=== PATIENT | male | born 2005 | race Asian ===

== ENCOUNTER 2024-09-14 19:00 | Emergency (ER) | payer MEDICAID, SELFPAY ==
[2024-09-14 19:01] VITALS: BMI 27.0
[2024-09-14 20:22] VITALS: BP 131/81; PULSE 83; RESP 20; TEMP 37.1; O2SAT 97
[2024-09-14] MEDS: DEXAMETHASONE SOD PHOS INJ 10 MG/ML VIAL PO (21:03)
--- NOTE | 2024-09-14 21:18 | EDNOTE_ITS ---
ED Asthma RME/HPI General Chief Complaint: Shortness of Breath/Dyspnea Stated Complaint: SOB Time Seen by Provider: 09/14/24 20:44 Arrival date/time: 09/14/24 19:00 19M with history of asthma presents to ED with 1 day of cough and some SOB. Limitations: no limitations Related Data Previous Rx's ?Medication ?Instructions ?Recorded albuterol sulfate 90 mcg/actuation 2 puff inhalation Q 6H PRN 09/14/24 aerosol inhaler (Ventolin HFA) shortness of breath or wheezing #8.5 grams Allergies Allergy/AdvReac Type Severity Reaction Status Date / Time No Known Allergies Allergy Verified 09/14/24 19:00 Review of Systems Review of Systems Systems Reviewed: All systems reviewed, normal except as documented Constitutional Constitutional: Reports system reviewed and no additional complaints, except as documented, Denies fever(s) and Denies headache(s) ENT Ears, Nose, Mouth, and Throat: Denies disequilibrium and Denies headache(s) Cardiovascular Cardiovascular: Reports system reviewed and no additional complaints, except as documented, Denies chest pain and Reports dyspnea Respiratory Respiratory: Reports system reviewed and no additional complaints, except as documented, Reports as per HPI, Reports cough and Reports dyspnea Gastrointestinal Gastrointestinal: Reports system reviewed and no additional complaints, except as documented, Denies abdominal pain, Denies nausea and Denies vomiting Neurologic Neurologic: Reports system reviewed and no additional complaints, except as documented, Denies confusion, Denies disequilibrium and Denies headache(s) Psychiatric Psychiatric: Denies confusion Past Medical History Social History SMOKING STATUS: Never smoker ED Exam General Limitations: Present no limitations General appearance: Present alert and in no apparent distress Head Head exam: Present atraumatic Eye Eye exam: Present normal appearance, PERRL and EOMI ENT ENT exam: Present normal exam, normal oropharynx and mucous membranes moist Neck Neck exam: Present normal inspection, full ROM and trachea midline Chest Chest inspection: Present normal inspection and symmetric chest wall rise Respiratory Respiratory exam: Present prolonged expiratory phase (mild) Cardiovascular Cardiovascular exam: Present regular rate, normal rhythm and normal heart sounds Abdominal Exam Abdominal exam: Present soft and normal bowel sounds Extremities Exam Extremities exam: Present normal inspection and full ROM Back Exam Back exam: Present normal inspection and full ROM Neurological Exam Neurological exam: Present alert, oriented X3 and CN II-XII intact Psychiatric Psychiatric exam: Present normal affect and normal mood Skin Skin exam: Present warm, dry, intact and normal color Course Quality Measures none Orders Category Date Time Status Bedside Influenza A&B Antigen Test NOW Care 09/14/24 19:40 Active Albuterol/Ipratr Rt Laureen [Duoneb Rt Laureen] Med 09/14/24 21:16 Discontinued 3 ml INH X1 ONE Dexamethasone Inj [Decadron Inj] Med 09/14/24 20:44 Discontinued 10 mg PO X1 ONE Vital Signs Vital signs: Vital Signs Temperature 98.7 F 09/14/24 20:22 Pulse Rate 83 09/14/24 20:22 Respiratory Rate 20 09/14/24 20:22 Blood Pressure 131/81 H 09/14/24 20:22 Pulse Oximetry (%) 97 09/14/24 20:22 Oxygen Delivery Method Room Air 09/14/24 20:22 Asthma MDM Narrative MDM Narrative:: 19M with history of asthma presents to ED with 1 day of cough and some SOB. Physical exam reveals clear ENT and lungs. Mildly prolonged expiration. Patient is afebrile, calm, and alert. Swabs neg. Likely viral URI causing mild asthma exacerbation. Patient data External records reviewed:: None Clinical information provided by:: patient Social determinants that could affect healthcare access:: none Patient has the following chronic illnesses:: none How is presenting disease/condition affected by chronic disease/condition?: no chronic disease Evaluation data The following diagnostics were reviewed and interpreted by me:: lab results Lab and/or radiology exams considered but not ordered:: ordered Interpretation Summary: above Medications / Prescriptions Medications or Prescriptions considered but not ordered:: ordered Medication administrations:: Medication Administration History Discontinued Medications Albuterol/Ipratropium (Albuterol/Ipratropium (Duoneb) Rt Laureen 3 Ml Nebu) 3 ml INH X1 ONE Stop: 09/14/24 21:17 Dexamethasone Sodium Phosphate (Dexamethasone Sod Phos Inj 10 Mg/Ml Vial) 10 mg PO X1 ONE Stop: 09/14/24 20:45 Last Admin: 09/14/24 21:03 Dose: 10 mg Documented By: Consultations Consultation(s) initiated? (list below): No Diagnosis Differential diagnosis asthma: Acute exacerbation, Status asthmaticus, Acute ast hmatic bronchitis, Pneumonia, COPD exacerbation, Pulmonary edema systolic, Pulmonary edema dystolic, ARDS, Pneumothorax, Foreign body in trachea and other (URI) Most likely diagnosis given after review of the tests above:: URI and asthma exacerbation Admission Indicated Admission indicated?: not indicated Admission Request Was there a request for admission?: No Disposition Plan Disposition Plan: Discharge Discharge Attestation Discharge Attestation: The patient and all family members were given an opportunity to ask questions and understood the discharge instructions. Discharge instructions specifically effects, indications for sooner follow up or return to the emergency department, and the expected course of current diagnosis. Patient condition: Stable Discharge Plan Plan Patient Disposition: HOME (Self Care) Disposition Comment: Stable Prescriptions/Referrals Prescriptions/Med Rec: New albuterol sulfate [Ventolin HFA] 90 mcg/actuation HFA aerosol inhaler 2 puff inhalation Q6H PRN (Reason: shortness of breath or wheezing) Qty: 8.5 3RF Problem List Clinical Impression: URI (upper respiratory infection), Asthma with exacerbation Patient/Caregiver Discharge Instructions Education Materials: ED URI, Viral, No Abx (Adult) Additional Instructions: Please follow-up with PCP within 24-48 hours and return immediately if symptoms worsen. Ibuprofen/Tylenol can be used simultaneously for greater fever/pain control. Benadryl is good for cough, congestion, and sleep. Print Language: American Stand Alone Forms: Patient Portal Info Letter PA/SCRATCH BRUSHER Supervising Physician MARC/TAE Supervising Physician: Dr. Gutierrez
[2024-09-14] MEDS: ALBUTEROL/IPRATROPIUM (Duoneb) RT SOL 3 ML NEBU INH (21:45)
[2024-09-14 21:46] VITALS: PULSE 93; RESP 16; O2SAT 97
== END 2024-09-14 22:14 | disposition home or self-care (01) ==
PROVIDERS: Emergency Provider Emergency Medicine
DX: J45.901 Unspecified asthma with (acute) exacerbation (principal); J06.9 Acute upper respiratory infection, unspecified
CPT/HCPCS: 94640; 99283; A9270; J1100